=== PATIENT | male | born 1985 | race Caucasian/White ===

== ENCOUNTER 2024-12-07 10:10 | Emergency (ER) | payer OTHER ==
[~2024-12-07] VITALS: Ht 170.2 cm; Wt 77.0 kg
[2024-12-07 10:16] VITALS: O2SAT 98
[2024-12-07] MEDS: ACETAMINOPHEN 325MG TABLET PO ONE (10:41)
[2024-12-07 11:36] VITALS: BP 118/83; PULSE 74; RESP 18; TEMP 36.7; O2SAT 98
== END 2024-12-07 11:47 | disposition home or self-care (01) ==
LOC: ER 10:24
DX: M79.644 Pain in right finger(s) (principal); Z65.3 Problems related to other legal circumstances
CPT/HCPCS: 73140; 99283